=== PATIENT | male | born 1970 | race Caucasian/White ===

== ENCOUNTER 2024-05-18 08:39 | Emergency (ER) | payer OTHER, SELFPAY ==
[2024-05-18 08:52] VITALS: BP 122/73; PULSE 93; RESP 18; TEMP 36.7; O2SAT 97
--- NOTE | 2024-05-18 08:52 | ED.URI ---
HPI - URI/Sore Throat General Chief Complaint: Upper Respiratory Infection Stated Complaint: covid +/weakness Time Seen by Provider: 05/18/24 09:00 Source: patient and RN notes reviewed Mode of arrival: ambulatory Limitations: no limitations History of Present Illness HPI Narrative: 53-year-old male presents with concern for positive COVID test at home. Reports symptoms started on . Reports he took a positive COVID test on night. Reports he had a fever yesterday. He reports he has been taking Tylenol with codeine for body aches. He reports he is supposed to go back to work on Monday but feels like he is too sick to work on Monday. MD elicited complaint: fever Related Data Home Medications Medication Instructions Recorded Confirmed aspirin 81 mg chewable tablet 81 mg PO DAILY 05/18/24 05/18/24 omeprazole magnesium 20 mg 20 mg PO DAILY 05/18/24 05/18/24 tablet,delayed release (Prilosec OTC) Allergies Allergy/AdvReac Type Severity Reaction Status Date / Time No Known Allergies Allergy Verified 05/18/24 08:52 Review of Systems Review of Systems: CONSTITUTIONAL: Reports malaise, chills, sweats, fever. EYES: Denies visual changes, redness, or discharge. ENT: Reports rhinorrhea, congestion CARDIOVASCULAR: Denies chest pain, palpitations, or edema. RESPIRATORY: Reports cough. Denies dyspnea. GASTROINTESTINAL: Denies abdominal pain, nausea, vomiting, diarrhea SKIN: Denies rash or itching. MUSCULOSKELETAL: Reports myalgia. NEUROLOGIC: Reports headache. All systems reviewed & are unremarkable except as noted in HPI and below PMFSH Comments At time of signature, agree with nursing past medical, surgical, social and family history. There is no relevant family history pertinent to the presenting complaint Exam Narrative: GENERAL: Nontoxic-appearing, well-nourished, and in no acute distress. HEAD: Normocephalic EYES: PERRLA, conjunctivae clear ENT: Nares clear. Mucous membranes moist. TM pearly smart with sharp light reflex bilaterally; no tragal tenderness. Oropharynx not erythematous without lesions. Tonsils not enlarged and without exudate, no drooling, no hoarseness, no trismus, uvula midline. NECK: Supple. No lymphadenopathy CHEST: Clear to auscultation, breath sounds equal. No wheezing, rhonchi, rales, or stridor. No respiratory distress, speaks in full sentences. HEART: Regular rate and rhythm. No murmur heard. SKIN: Warm, dry, no rash. NEURO: Alert and oriented x3. PSYCH: Normal mood and affect Course Course Emergency Course: Patient is aware of diagnosis, understands and agrees to treatment plan. Anticipatory guidance given. Patient agrees to follow-up as directed and is aware of reasons to seek care at the emergency department. Portions of this record may have been created with voice recognition software Level of Care: Express Care Visit Vital Signs Vital signs: Reviewed. MDM - URI/Sore Throat MDM Narrative Medical decision making narrative: Differential diagnosis considered: Matos virus, strep pharyngitis, allergic rhinitis, upper respiratory tract infection, sinusitis, rhinosinusitis, nasopharyngitis. viral pharyngitis, otitis media, otitis externa, pneumonia, bronchitis, viral cough syndrome, viral syndrome, and influenza. Exam findings show no acute concerns or changes; patient is non-toxic appearing and is in no distress. Patient is appropriate for outpatient treatment and follow-up. Lab Data Attestation: I reviewed the patient's lab results. Critical Care Time Critical Care Time Critical Care Time: No Discharge Plan Discharge Clinical Impression: Positive self-administered antigen test for COVID-19 Patient Disposition: Home, Self-Care Condition: Stable Instructions: How to Recover from COVID-19 at Home (ED) Additional Instructions: Your rapid COVID test is positive. COVID is a virus, antibiotics are not effective against viruses. Your body
== END 2024-05-18 09:15 | disposition home or self-care (01) ==
PROVIDERS: Emergency Provider Nurse Practitioner; Referring Provider Emergency Medicine
DX: U07.1 COVID-19 (principal); K21.9 Gastro-esophageal reflux disease without esophagitis; Z79.82 Long term (current) use of aspirin
CPT/HCPCS: 99203; G0463

== ENCOUNTER 2025-08-24 15:55 | Emergency (ER) | payer OTHER, SELFPAY ==
--- NOTE | ~2025-08-24 | XR_ITS ---
EXAMINATION: XR shoulder RT min 2V, 08/24/2025 16:30 MULTINEEDLE SHIRRER HISTORY: fall from roof, pain COMPARISON: No comparisons available. Findings: Fracture of the midhumerus redemonstrated, no additional fracture or dislocation identified. No significant degenerative changes. Soft tissues unremarkable. Impression: Mid humeral fracture Reviewed, dictated and finalized at location P. INEEDLE SHIRRER Impression: Mid humeral fracture
--- NOTE | ~2025-08-24 | XR_ITS ---
EXAMINATION: XR humerus RT, 08/24/2025 16:30 SBA BUSINESS DEVELOPMENT OFFICER HISTORY: fall from roof, pain COMPARISON: No comparisons available. Findings: There is a displaced comminuted slightly angulated fracture of the mid humerus. No significant degenerative changes. Soft tissue swelling. Impression: Fracture detailed above Reviewed, dictated and finalized at location P. BUSINESS DEVELOPMENT OFFICER Impression: Fracture detailed above
--- NOTE | ~2025-08-24 | CT_ITS ---
EXAMINATION: CT cervical spine wo con COMPARISON: None HISTORY: fall from roof, trauma TECHNIQUE: Axial images were obtained through the spine without IV contrast. Coronal, sagittal reconstruction images were obtained from the axial views. CT scan performed using dose optimization techniques including the following automated exposure control; adjustment of mA and/or kV; use of iterative reconstruction technique. Automatic exposure control was used to reduce radiation dose. Permanent radiation dose record is archived to PACS. FINDINGS: The vertebral heights are intact. No fracture or subluxation. The disc heights are intact. Soft tissues unremarkable. Impression: No acute abnormality. Reviewed, dictated and finalized at location P. AVER COPPERPLATE Impression: No acute abnormality.
--- NOTE | ~2025-08-24 | CT_ITS ---
EXAMINATION: CT brain wo sg, 08/24/2025 16:05 HYDRAULIC AUTO JACK MECHANIC HISTORY: fall from roof, trauma COMPARISON: No comparisons available. Technique: Axial images obtained of the brain without contrast. One or more of the following dose reduction techniques were used: automated exposure control, adjustment of the mA and/or kV according to patient size, use of iterative reconstruction technique. Findings: No acute infarct or parenchymal hemorrhage. No abnormal mass or mass effect. No midline shift. No extra-axial fluid collections. No hydrocephalus. Mastoid air cells unremarkable. Sinuses and orbits unremarkable. No acute fracture. No significant facial or scalp soft tissue swelling evident. No radiopaque foreign body is seen. Impression: 1.No acute intracranial abnormality. Reviewed, dictated and finalized at location P. AULIC AUTO JACK MECHANIC Impression: 1.No acute intracranial abnormality.
--- NOTE | ~2025-08-24 | CT_ITS ---
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 TECHNIQUE: CT scan of the chest, abdomen and pelvis was performed with contrast Isovue 300, 92cc injected IV. One or more of the following dose reduction techniques were used: automated exposure control, adjustment of the mA and/or kV according to patient size, use of iterative reconstruction technique. Unless otherwise stated, incidental findings do not require dedicated follow up imaging FINDINGS: CT chest: No significant coronary calcification is present ([id number]) LUNGS: Moderate emphysematous changes. Mild pulmonary fibrotic changes. There is no contusion or pneumothorax. There are scattered calcified granulomas. No significant honeycombing or areas of bullous formation appreciated. Scattered subcentimeter micronodules, in a high-risk patient, follow-up is suggested. Punctate calcified splenic granulomas. HEART AND PERICARDIUM: Mild cardiomegaly. AORTA: Normal caliber aorta. MEDIASTINUM: Calcified mediastinal and hilar lymph nodes. THYROID: The thyroid is unremarkable. CT abdomen: LIVER: Moderate hepatic steatosis. SPLEEN: Unremarkable, no splenomegaly. KIDNEYS: Right Kidney: Unremarkable. No calculi. No hydronephrosis. Left Kidney: Unremarkable. No calculi. No hydronephrosis ADRENAL GLANDS: Unremarkable. PANCREAS: GALLBLADDER/BILIARY: Unremarkable. No biliary dilatation. STOMACH AND ESOPHAGUS: Visualized stomach and esophagus within normal limits. BOWEL/MESENTERY: No colitis or diverticulitis. Moderate fecal content. Appendix normal. Mesentery normal. No thickening or dilated loops of small bowel. RETROPERITONEUM: Unremarkable AORTA/VASCULATURE: Normal caliber aorta. FREE FLUID OR FREE AIR: No free fluid.. CT pelvis: SOLID ORGANS/REPRODUCTIVE: Prostate prominent, correlate to PSA. BLADDER: Within normal limits. LYMPHADENOPATHY: There are enlarged lymph nodes in the peripancreatic space the largest 1.3 x 1.7 cm possibly reactive. OSSEOUS STRUCTURES: No fractures identified within the pelvis. There are no sclerotic or lytic lesions. No rib fractures identified. OVERLYING SOFT TISSUES: Small fat-containing left inguinal hernia. IMPRESSION: 1. There is no posttraumatic process identified. Incidental findings above Reviewed, dictated and finalized at location P. AL DELIVERY OFFICER
--- OUTSIDE RECORDS SUMMARY | 2025-08-24 15:57 | XMS_ITS | Clinical Summary ---
Author Organization [facility] Address [address] [place] [address] Care Team Providers Care Railroad Accountant Name Role Phone None, Provider MD Primary Care Provider Unavaila ble None, Provider MD Unavailable Unavailable Medications omeprazole (PRILOSEC) 10 MG capsule Take 1 capsule (10 mg total) by mouth daily. Active azithromycin (ZITHROMAX) 250 MG tabletIndicatio ns:Bronchitis Take 2 tablets by mouth on day one then 1 daily for four days. 6 tablet 02/13/2023 Active Active Problems No known active problems Social History Tobacco Use Types Packs/Day Years Used Date Smoking Tobacco: Never Assessed Cigarettes Smokeless Tobacco: Never Tobacco Cessation:Counseling Given: No PHQ-2 Answer Date Recorded Patient Health Questionnaire-2 Score 0 09/08/2022 Sex and Gender Information Value Date Recorded Sex Assigned at Not on file Legal Sex Male 8:18 PM CDT Gender Identity Not on file Sexual Orientation Not on file Last Filed Vital Signs Vital Sign Reading Time Taken Comments Blood Pressure 122/81 02/13/2023 9:10 AM CDT Pulse 90 02/13/2023 9:10 AM CDT Temperature 36.6 C (97.9 F) 02/13/2023 9:10 AM CDT Respiratory Rate 16 02/13/2023 9:10 AM CDT Oxygen Saturation 97% 02/13/2023 9:10 AM CDT Inhaled Oxygen Concentration - - Weight 80.3 kg (177 lb) 02/13/2023 9:10 AM CDT Height 177.8 cm (5' 10) 02/13/2023 9:10 AM CDT Body Mass Index 25.4 02/13/2023 9:10 AM CDT Plan of Treatment Health Maintenance Due Date Last Done Comments Colorectal Cancer Screening Colonoscopy (10 Years) 1968 Annual Physical 1971 Hepatitis C 1986 DTaP, Tdap and Td Vaccines ( 1 - Tdap) 1987 Hepatitis B Vaccines (1 of 3 - 19+ 3-dose series) 1987 Pneumococcal Vaccine: 50+ Years (1 of 1 - PCV) 2018 Zoster Vaccines (1 of 2) 2018 COVID-19 Vaccine (4 - 2024-2 6 season) 2025 08/28/2021, 01/17/2021, 12/27/2020 Influenza Adult (#1) 2025 Hepatitis A Vaccines Aged Out No long er eligible based on patient's age to complete this topic Meningococcal B Vaccine Aged Out No l onger eligible based on patient's age to complete this topic Meningococcal Vaccine Aged Out No katerin bri eligible based on patient's age to complete this topic RSV Immunizations Under 20 Months Aged Out No longer eligible b ased on patient's age to complete this topic Insurance [facility] Care Teams Railroad Accountant Relationship Specialty Start Date End Date None, Provider, PCP - General UNKNOWN PHYSICIAN SPECIALTY 02/13/23 None, ProviderMD UNKNOWN PHYSICIAN SPECIALTY 02/13/23
[2025-08-24 16:04] VITALS: PULSE 91; RESP 20; O2SAT 97
--- NOTE | 2025-08-24 16:07 | ED_ITS ---
HPI - Fall General Chief Complaint: Fall <MARILYN Finney Last Filed: 08/24/25 20:54> Stated Complaint: fall off roof <MARILYN Finney Last Filed: 08/24/25 20:54> Time Seen by Provider: 08/24/25 15:57 <MARILYN Finney Last Filed: 08/24/25 20:54> Source: patient <MARILYN Finney Last Filed: 08/24/25 20:54> Mode of arrival: ambulatory <MARILYN Finney Last Filed: 08/24/25 20:54> Limitations: no limitations <MARILYN Finney Last Filed: 08/24/25 20:54> History of Present Illness HPI Narrative: Patient is a 55 y/o male who presents to the ED with report of trauma. Patient reports he was working on the roof of a barn when he fell through the plastic glass-like window. He fell onto a 4-peter. Patient denied LOC. Was brought to the ED by his ex-boss. C/o pain to his R arm/shoulder, L hip, L lower back. Sustained abrasions to wally shins, bruising to L abd. Denies CP, ABD pain, dizziness, CHIN, SOB. He is not on any blood thinners. Placed in C-collar upon arrival. <MARILYN Finney Last Filed: 08/24/25 20:54> Related Data Home Medications: Home Medications ?Medication ?Instructions ?Recorded ?Confirmed ?Last Taken ?Type aspirin 81 mg chewable tablet 81 mg PO DAILY 05/18/24 05/18/24 Unknown History omeprazole magnesium 20 mg 20 mg PO DAILY 05/18/24 Unknown History tablet,delayed release (Prilosec OTC) <MARILYN Finney Last Filed: 08/24/25 20:54> Allergies/Adverse Reactions: Allergies Allergy/AdvReac Type Severity Reaction Status Date / Time No Known Allergies Allergy Verified 05/18/24 08:52 <Neva Gan PA-C - Last Filed: 08/24/25 20:54> Review of Systems 2 Review of Systems: All systems reviewed & are unremarkable except as noted in HPI. <Neva Gan PA-C - Last Filed: 08/24/25 20:54> All systems reviewed & are unremarkable except as noted in HPI and below < Neva Gan PA-C - Last Filed: 08/24/25 20:54> Exam 2 Narrative: GENERAL: Appears older than stated age, well-nourished, non-toxic, in no acute distress. HEAD: Normocephalic, atraumatic. NECK: No appreciable midline cervical spinal tenderness. C-collar in place RESPIRATORY: Airway patent, respirations nonlabored. Clear to auscultation bilaterally, no rales, rhonchi, wheezing. No splinting. CARDIOVASCULAR: Regular rate and rhythm without murmurs, rubs, or gallops. ABDOMINAL: Soft, no appreciable tenderness, nondistended. Normoactive BS. Small abrasion/bruising to L mid abdomen MUSCULOSKELETAL: No gross deformities. Limited range of motion of right upper extremity due to pain. Tenderness to palpation over right shoulder, right mid humerus. Swelling noted. No appreciable tenderness throughout right elbow joint, right wrist joint. Sensation intact throughout right upper extremity. No appreciable C/T/L midline spinal tenderness. No palpable bony deformities or step offs. No chest wall tenderness. Pelvis stable. SKIN: Warm, dry, normal color. Small abrasions over wally mid anterior shins. No deep wounds or lacerations. No surrounding tenderness. NEURO: A&O X3. Speech clear. Cranial nerves II-XII grossly intact. Steady gait. No ataxic movements. PSYCHIATRIC: Appropriate mood and affect. Normal interaction. <Neva Gan PA-C - Last Filed: 08/24/25 20:54> Course KNUCKLE BENDER/PA Physician Supervision This visit was performed by both a physician and an APC. I performed all aspects of the MDM as documented. <Adam Stapleton MD - Last Filed: 08/24/25 18:01> Vital Signs Vital signs: Vital Signs Pulse Rate 91 08/24/25 16:04 Respiratory Rate 20 08/24/25 16:04 Pulse Oximetry 97 08/24/25 16:04 Temperature 98 F 08/24/25 16:11 Pulse Rate 89 08/24/25 19:17 Respiratory Rate 20 08/24/25 19:17 Blood Pressure 122/86 08/24/25 19:17 Pulse Oximetry 100 08/24/25 19:17 <Neva Gan PA-C - Last Filed: 08/24/25 20:54> Vital Signs Pulse Rate 91 08/24/25 16:04 Respiratory Rate 20 08/24/25 16:04 Pulse Oximetry 97 08/24/25 16:04 Temperature 98 F 08/24/25 16:11 Pulse Rate 89 08/24/25 19:17 Respiratory Rate 20 08/24/25 19:17 Blood Pressure 122/86 08/24/25 19:17 Pulse Oximetry 100 08/24/25 19:17 <dAam Stapleton MD - Last Filed: 08/24/25 18:01> MDM - Fall MDM Narrative Medical decision making narrative: Patient presented to ED s/p fall from 1st story roof. Trauma activated. C- collar placed. VSS upon arrival. Patient uncomfortable appearing but no acute distress. C/o pain to L hip, L lower back, RUE. CT brain and cervical spine negative CT chest/abdomen/pelvis obtained and also without acute traumatic findings or fractures. X-ray of right shoulder/right humerus showing midshaft humerus fracture. Displaced, comminuted, mildly angulated. Consistent with clinical picture. Patient neurovascularly intact. No evidence of radial nerve/artery injury. There was no pelvic or hip fracture noted on imaging. Discussed high likelihood of L hip contusion/sprain. Discussed case with Dr. Wallace, orthopedics, reviewed images himself, recommended evaluation by traumatologist at tertiary center. Discussed case with [facility] transfer center, advised patient can f/u in clinic w/ Dr. Caleb Chapa, clinic number- [phone] - OR -can be transferred for trauma eval in the ER. Discussed these options with patient/family. Will be placed in coaptation splint and sling. Utilized shared decision-making with patient and family regarding d/c home vs transfer. Patient would prefer to go home but is nervous about pain management at home. Discussed that I can prescribe pain medication for home use. His pain was controlled in the ED. Patient was ambulated after splint placement and patient did will not with this. [place] comfortable ambulating enough. States he would like to go home. He does not wish to be transferred at this time. Again discussed possibility of transferring for trauma eval, however patient politely declined. is in agreement with plan. They have a ride home. Patient advised to call orthopedic office 1st thing tomorrow morning to make follow-up appointment. Discussed rice therapy, pain medication sent to pharmacy. Discussed strict return precautions. Patient and family voiced understanding. Discharged in stable condition. <Neva Gan PA-C - Last Filed: 08/24/25 20:54> Medical Records Attestation: I reviewed the patient's medical records. <Neva Gan PA-C - Last Filed: 08/24/25 20:54> Lab Data Attestation: I reviewed the patient's lab results. <MARILYN Finney Last Filed: 08/24/25 20:54> Result diagrams: 08/24/25 16:08 08/24/25 16:21 <Neva Gan PA-C - Last Filed: 08/24/25 20:54> Labs: Lab Results 08/24/25 08/24/25 Range/Units 16:08 16:21 WBC 17.4 H (4.5-10.0) K/mm3 RBC 4.93 (4.6-6.20) M/mm3 Hgb 14.5 (14.0-18.0) g/dL Hct 45.1 (42.0-52.0) % MCV 91.5 (80-100) fl MCH 29.4 (26-34) pg MCHC 32.2 (32-36) g/dl RDW 14.4 (11.5-14.5) % Plt Count 329 (150-375) k/mm3 MPV 10.0 (7.4-10.4) fl Immature Gran % (Auto) 0.7 H (0-0.5) % Neut % (Auto) 72.6 (45.5-73.1) % Lymph % (Auto) 21.0 (18.3-44.2) % [place] % (Auto) 4.9 (2.6-8.5) % Eos % (Auto) 0.5 (0-4.4) % Baso % (Auto) 0.3 (0.2-1.2) % Lymph # (Auto) 3.66 H (0.9-3.2) K/mm3 [place] # (Auto) 0.9 H (0.1-0.6) K/mm3 Eos # (Auto) 0.1 (0-0.3) K/mm3 Baso # (Auto) 0.1 (0.0-0.1) K/mm3 Abs Immat Gran (auto) 0.13 H (0.00-0.031) K/mm3 Absolute Neuts (auto) 12.6 H (1.3-6.7) K/mm3 Absolute Nucleated RBC 0.000 (0.0-0.012) K/mm3 Nucleated RBC % 0.0 (0.0-0.2) % PT 13.1 (11.1-14.7) Seconds INR 1.0 APTT 24.6 (22.3-36.8) Seconds Sodium 134 L (137-145) mmol/L Potassium 3.9 (3.4-5.0) mmol/L Chloride 101 (98-107) mmol/L Carbon Dioxide 26 (22-30) mmol/L Anion Gap 7 (4-12) mmol/L BUN 17 (9-20) mg/dL Creatinine 1.03 1.00 (0.7-1.3) mg/dL Estim Creat Clear Calc Not Reportable Not Reportable Estimated GFR > 60 > 60 (59 - ) Glucose 179 H (65-110) mg/dL Calcium 9.3 (8.4-10.2) mg/dL Total Bilirubin 0.8 (0.2-1.3) mg/dL AST 85 H (17-59) U/L ALT 74 H (6-50) U/L Alkaline Phosphatase 112 (38-126) U/L Total Protein 8.0 (6.3-8.2) g/dL Albumin 4.4 (3.5-5.1) g/dL <Neva Gan PA-C - Last Filed: 08/24/25 20:54> Lab Results 08/24/25 08/24/25 Range/Units 16:08 16:21 WBC 17.4 H (4.5-10.0) K/mm3 RBC 4.93 (4.6-6.20) M/mm3 Hgb 14.5 (14.0-18.0) g/dL Hct 45.1 (42.0-52.0) % MCV 91.5 (80-100) fl MCH 29.4 (26-34) pg MCHC 32.2 (32-36) g/dl RDW 14.4 (11.5-14.5) % Plt Count 329 (150-375) k/mm3 MPV 10.0 (7.4-10.4) fl Immature Gran % (Auto) 0.7 H (0-0.5) % Neut % (Auto) 72.6 (45.5-73.1) % Lymph % (Auto) 21.0 (18.3-44.2) % [place] % (Auto) 4.9 (2.6-8.5) % Eos % (Auto) 0.5 (0-4.4) % Baso % (Auto) 0.3 (0.2-1.2) % Lymph # (Auto) 3.66 H (0.9-3.2) K/mm3 [place] # (Auto) 0.9 H (0.1-0.6) K/mm3 Eos # (Auto) 0.1 (0-0.3) K/mm3 Baso # (Auto) 0.1 (0.0-0.1) K/mm3 Abs Immat Gran (auto) 0.13 H (0.00-0.031) K/mm3 Absolute Neuts (auto) 12.6 H (1.3-6.7) K/mm3 Absolute Nucleated RBC 0.000 (0.0-0.012) K/mm3 Nucleated RBC % 0.0 (0.0-0.2) % PT 13.1 (11.1-14.7) Seconds INR 1.0 APTT 24.6 (22.3-36.8) Seconds Sodium 134 L (137-145) mmol/L Potassium 3.9 (3.4-5.0) mmol/L Chloride 101 (98-107) mmol/L Carbon Dioxide 26 (22-30) mmol/L Anion Gap 7 (4-12) mmol/L BUN 17 (9-20) mg/dL Creatinine 1.03 1.00 (0.7-1.3) mg/dL Estim Creat Clear Calc Not Reportable Not Reportable Estimated GFR > 60 > 60 (59 - ) Glucose 179 H (65-110) mg/dL Calcium 9.3 (8.4-10.2) mg/dL Total Bilirubin 0.8 (0.2-1.3) mg/dL AST 85 H (17-59) U/L ALT 74 H (6-50) U/L Alkaline Phosphatase 112 (38-126) U/L Total Protein 8.0 (6.3-8.2) g/dL Albumin 4.4 (3.5-5.1) g/dL <Adam Stapleton MD - Last Filed: 08/24/25 18:01> Imaging Data Attestation: I personally reviewed and interpreted this imaging study as follows: < Neva Gan PA-C - Last Filed: 08/24/25 20:54> Radiologist's impression: ITS Impressions Head CT 08/24/25 16:36 Impression: 1.No acute intracranial abnormality. Cervical Spine CT 08/24/25 16:38 Impression: No acute abnormality. Chest/Abdomen/Pelvis CT 08/24/25 16:42 IMPRESSION: 1. There is no posttraumatic process identified. Incidental findings above Humerus X-Ray 08/24/25 16:51 Impression: Fracture detailed above Shoulder X-Ray 08/24/25 16:52 Impression: Mid humeral fracture <Neva Gan PA-C - Last Filed: 08/24/25 20:54> Discharge Plan Discharge Clinical Impression: Humerus shaft fracture Qualifiers: Encounter type: initial encounter Fracture type: closed Fracture morphology: c omminuted Fracture alignment: displaced Laterality: right Qualified Code(s): S 42.351A - Displaced comminuted fracture of shaft of humerus, right arm, initial encounter for closed fracture Contusion of left hip Qualifiers: Encounter type: initial encounter Qualified Code(s): S70.02XA - Contusion of left hip, initial encounter Fall from roof Qualifiers: Encounter type: initial encounter Qualified Code(s): W13.2XXA - Fall from, out of or through roof, initial encounter <MARILYN Finney Last Filed: 08/24/25 20:54> Patient Disposition: Home <MARILYN Finney Last Filed: 08/24/25 20:54> Condition: Stable <MARILYN Finney Last Filed: 08/24/25 20:54> Instructions: Antibiotic Form, Arm Fracture in Adults (ED), How to Use a Sling (ED), Splint Care (ED), P.R.I.C.E. Treatment (ED) <MARILYN Finney Last Filed: 08/24/25 20:54> Additional Instructions: You will need to follow-up with [facility] orthopedics (Dr. Caleb Chapa) for further evaluation of your arm fracture. You will need to call the office at [phone] tomorrow morning to make a follow-up appointment. Take imaging disc with you to the appointment. Wear splint until seen by Orthopedics. Continue Tylenol and Ibuprofen as needed for pain. You can take 1000mg of Tylenol and 600mg of Ibuprofen every 6 hours for pain. You may use ice/heat, lidocaine patches to area of pain. [place] as needed for more severe pain. This does also contain Tylenol, so use caution with dosing. Do not drive, operate heavy machinery, drink alcohol while on pain medication as this may cause sedation. Return to the ED if you experience worsening or severe pain, recurrent fall or injury, numbness in your arms or legs, severe dizziness, passing out, unable to keep down food or drink, or any other symptoms of concern. <MARILYN Finney Last Filed: 08/24/25 20:54> Patient Language: Samoan <MARILYN Finney Last Filed: 08/24/25 20:54> Prescriptions: New hydrocodone-acetaminophen 5-325 mg tablet 1 tablet PO Q6H PRN (Reason: pain) Qty: 20 0RF lidocaine 5 % adhesive patch,medicated 1 patch topical DAILY Qty: 15 0RF Rx Instructions: leave on most painful area for up to 12 hrs No Action aspirin 81 mg Tablet,Chewable 81 mg PO DAILY omeprazole magnesium [Prilosec OTC] 20 mg Tablet,Delayed Release (Dr/Ec) 20 mg PO DAILY pseudoephedrine HCl [12 Hour Decongestant] 120 mg tablet extended release 120 mg PO Q12H PRN (Reason: nasal congestion) Qty: 20 0RF dextromethorphan-guaifenesin [Mucinex DM] 60-1,200 mg tablet extended release 12 hr 1 tablet PO Q12H Qty: 12 0RF <Neva Gan PA-C - Last Filed: 08/24/25 20:54> Follow-up/Referrals: PHYSICIAN,STORE STANDARDS ASSOCIATE [Primary Care Provider, Internal Medicine] <Neva Gan PA-C - Last Filed: 08/24/25 20:54> Stand Alone Forms: Work/School Release IP <Neva Gan PA-C - Last Filed: 08/24/25 20:54> Time of Disposition: 18:52 <Neva Gan PA-C - Last Filed: 08/24/25 20:54> 18:52 <Adam Stapleton MD - Last Filed: 08/24/25 18:01>
[2025-08-24 16:11] VITALS: BP 120/72; TEMP 36.6
[2025-08-24 16:33] LABS: Estimated Glomerular Filt Rate > 60
[2025-08-24 16:38] LABS: Hematocrit 45.1 % (42.0-52.0); Hemoglobin 14.5 g/dL (14.0-18.0); Immature Granulocyte Percent A 0.7 % (0-0.5); Lymphocytes Absolute Auto 3.66 K/mm3 (0.9-3.2); Mean Corpuscular HGB Conc 32.2 g/dl (32-36); Mean Corpuscular Hemoglobin 29.4 pg (26-34); Mean Corpuscular Volume 91.5 fl (80-100); Nucleated Red Blood Cells Absolute Auto 0.000 K/mm3 (0.0-0.012); Nucleated Red Blood Cells Perc 0.0 % (0.0-0.2); Platelet Count Result 329 k/mm3 (150-375); Red Blood Count 4.93 M/mm3 (4.6-6.20); White Blood Count 17.4 K/mm3 (4.5-10.0)
[2025-08-24 16:41] LABS: Alanine Aminotransferase 74 U/L (6-50); Albumin Level 4.4 g/dL (3.5-5.1); Alkaline Phosphatase 112 U/L (38-126); Anion Gap 7 mmol/L (4-12); Aspartate Amino Transferase 85 U/L (17-59); Bilirubin,Total 0.8 mg/dL (0.2-1.3); Blood Urea Nitrogen 17 mg/dL (9-20); Calcium 9.3 mg/dL (8.4-10.2); Carbon Dioxide 26 mmol/L (22-30); Chloride 101 mmol/L (98-107); Estimated Glomerular Filt Rate > 60; Glucose 179 mg/dL (65-110); INR 1.0; Potassium 3.9 mmol/L (3.4-5.0); Prothrombin Time 13.1 Seconds (11.1-14.7); Sodium 134 mmol/L (137-145); Total Protein 8.0 g/dL (6.3-8.2)
[2025-08-24 16:42] LABS: Partial Thromboplastin Time 24.6 Seconds (22.3-36.8)
[2025-08-24] MEDS: MORPHINE SULFATE (*CRX) 4 MG/ML INJ IV PUSH (16:46)
[2025-08-24] MEDS: ONDANSETRON INJ 4 MG/2 ML VIAL IV PUSH (16:46)
[2025-08-24 18:18] VITALS: BP 99/66; PULSE 102; RESP 18; O2SAT 93
[2025-08-24] MEDS: KETOROLAC 30 MG/ML VIAL (*BKC) IV PUSH (18:49)
[2025-08-24] MEDS: HYDROcodone/acetaminophen (*CRX) 5-325 MG TABLET 1 TAB PO (19:15)
[2025-08-24 19:17] VITALS: BP 122/86; PULSE 89; RESP 20; O2SAT 100
== END 2025-08-24 19:34 | disposition home or self-care (01) ==
PROVIDERS: Emergency Provider Physician Assistant
DX: S42.351A Displaced comminuted fracture of shaft of humerus, right arm, initial encounter for closed fracture (principal); S70.02XA Contusion of left hip, initial encounter; W13.2XXA Fall from, out of or through roof, initial encounter
CPT/HCPCS: 36415; 70450; 71260; 72125; 73030; 73060; 74177; 80053; 85025; 85610; 85730; 96374; 96375; 99284; A4565; A9270; J1885; J2270; J2405; L0140; Q9967